=== PATIENT | female | born 1970 ===

== ENCOUNTER 2018-09-19 08:15 | Day surgery (SDC) | payer OTHER ==
[~2018-09-19 08:15] MED LIST: AMBIEN5 MG PO; SYMBICORT 16010.2 GM IH
== END 2018-09-19 18:05 | disposition home or self-care (01) ==
LOC: CIR.AMB 08:15
DX: N84.0 Polyp of corpus uteri (principal)

== ENCOUNTER 2018-09-21 16:38 | Emergency (ER) | payer OTHER ==
[~2018-09-21] VITALS: Ht 157.5 cm; Wt 80.3 kg
== END 2018-09-21 20:51 | disposition home or self-care (01) ==
LOC: ER 16:38
DX: N93.8 Other specified abnormal uterine and vaginal bleeding (principal)

== ENCOUNTER 2019-01-21 15:33 | Inpatient (IN) | payer OTHER ==
[~2019-01-21] VITALS: Ht 157.5 cm; Wt 77.1 kg
[~2019-01-21 15:33] MED LIST changes: +SYMBICORT 80/10.2 GM IH
== END 2019-01-26 14:50 | disposition home or self-care (01) | DRG 742 ==
LOC: OB/GYN 01-23 05:36 → O/R 01-23 05:36 → SURH 01-23 08:00 → OB/GYN 01-23 17:16
PROVIDERS: ADMIT Obstetrics & Gynecology
PROC: 0UT90ZZ Resection of Uterus, Open Approach (ICD-10-PCS; principal; 2019-01-23 08:00)
DX: N92.1 Excessive and frequent menstruation with irregular cycle (principal); J98.11 Atelectasis; J45.998 Other asthma; Q50.39 Other congenital malformation of ovary

== ENCOUNTER 2019-05-25 14:45 | Emergency (ER) | payer OTHER ==
[~2019-05-25] VITALS: Ht 154.9 cm; Wt 74.8 kg
== END 2019-05-25 18:03 | disposition home or self-care (01) ==
LOC: ER 14:45
DX: R10.2 Pelvic and perineal pain (principal)